=== PATIENT | male | born 1980 | race African-American/Black ===

== ENCOUNTER 2016-08-29 10:49 | Emergency (ER) | payer OTHER ==
[~2016-08-29] VITALS: Ht 170.2 cm; Wt 101.4 kg
[2016-08-29 13:17] VITALS: BP 138/79
== END 2016-08-29 13:20 ==
LOC: EME 10:49
DX: I80.02 Phlebitis and thrombophlebitis of superficial vessels of left lower extremity (principal); Z87.891 Personal history of nicotine dependence
CPT/HCPCS: 93971; 99281; 99282